=== PATIENT | female | born 1945 | race Caucasian/White ===

== ENCOUNTER → 2016-08-31 | Outpatient (CLI) | payer MEDICARE, OTHER | LOC: MC.RAD 10:20 | DX: Z12.31 Encounter for screening mammogram for malignant neoplasm of breast (principal) ==

== ENCOUNTER → 2017-10-31 | Outpatient (CLI) | payer MEDICARE, OTHER | LOC: MC.RAD 09-25 13:00 | DX: Z12.31 Encounter for screening mammogram for malignant neoplasm of breast (principal) ==

== ENCOUNTER → 2018-11-28 | Outpatient (CLI) | payer MEDICARE, OTHER | LOC: MC.RAD 09:01 | DX: Z12.31 Encounter for screening mammogram for malignant neoplasm of breast (principal) ==

== ENCOUNTER → 2019-12-03 | Outpatient (CLI) | payer MEDICARE, OTHER | LOC: MC.RAD 10:01 | DX: Z12.31 Encounter for screening mammogram for malignant neoplasm of breast (principal) ==

== ENCOUNTER → 2020-12-28 | Outpatient (CLI) | payer MEDICARE, OTHER | LOC: MC.RAD 10:04 | DX: Z12.31 Encounter for screening mammogram for malignant neoplasm of breast (principal) ==

== ENCOUNTER 2021-04-14 09:11 | Day surgery (SDC) | payer MEDICARE, OTHER ==
[~2021-04-14] VITALS: Ht 157.5 cm; Wt 72.8 kg
[2021-04-14 10:00] VITALS: BP 120/60; PULSE 58; TEMP 97.6
[2021-04-14] MEDS ORDERED: NEXIUM 40MG40 MG PO (10:09)
[2021-04-14 11:20] VITALS: BP 115/68; PULSE 62; TEMP 97.2
[2021-04-14 11:30] VITALS: BP 118/60; PULSE 54
[2021-04-14 11:45] VITALS: BP 115/52; PULSE 55
[2021-04-14 12:00] VITALS: BP 111/49; PULSE 60
[2021-04-14 12:15] VITALS: BP 104/70; PULSE 73
--- NOTE | 2021-04-14 12:30 | NUR ---
1120 Pt returns from endo procedure via cart and RN assist to [facility]. Pt ambulates from cart to recliner with RN assist. Monitors on and alarms set. Call light within reach. Report received from LUZMA Matthews. Pt alert and oriented. Pt requests tea and muffin. Pt denies any pain or nausea. 1140 Pt taking food and drink well. No complications noted. 1225 Discharge instructions given to pt. All questions answered to her satisfaction. Handed to pt are a thank you card and discharge information. 1230 Pt transferred out of the hospital via wheelchair and this RN assist, to private vehicle driven by pt's .
[2021-04-15] MEDS ORDERED: CALCIUM 600 MG1 EAC2 PO (07:00)
[2021-04-15] MEDS ORDERED: TRUBIOTIC PO (07:00)
[2021-04-15] MEDS ORDERED: [UNRECOGNIZED DRUG - OTHER] PO (07:01)
[2021-04-15] MEDS ORDERED: OCUVITE1 TA1 PO (07:01)
[2021-04-15] MEDS ORDERED: ALPHA GALACTOSIDASE PO (07:02)
[2021-04-15] MEDS ORDERED: KRILL OIL 5001 EACH PO (07:14)
[2021-04-15] MEDS ORDERED: ASPIRIN 81M81 MG/TA2 PO (07:15)
[2021-04-15] MEDS ORDERED: INDERAL60 MG PO (07:15)
[2021-04-15] MEDS ORDERED: TYLENOL 325MG325 MG PO (07:16)
[2021-04-15] MEDS ORDERED: ZOCOR 20MG20 MG PO (07:16)
[2021-04-15] MEDS ORDERED: ADVIL200 MG PO (07:17)
== END 2021-04-14 12:30 | disposition home or self-care (01) ==
LOC: SDCO 09:11
DX: R19.7 Diarrhea, unspecified (principal); K59.00 Constipation, unspecified; K64.0 First degree hemorrhoids; K58.9 Irritable bowel syndrome, unspecified; K21.9 Gastro-esophageal reflux disease without esophagitis; I65.29 Occlusion and stenosis of unspecified carotid artery; Q27.33 Arteriovenous malformation of digestive system vessel; E78.5 Hyperlipidemia, unspecified; M19.90 Unspecified osteoarthritis, unspecified site; G43.909 Migraine, unspecified, not intractable, without status migrainosus; Z79.82 Long term (current) use of aspirin; Z79.899 Other long term (current) drug therapy; Z90.89 Acquired absence of other organs; Z90.710 Acquired absence of both cervix and uterus; Z98.51 Tubal ligation status
CPT/HCPCS: J2704; J7120